=== PATIENT | female | born 1940 | race Caucasian/White ===

== ENCOUNTER 2016-04-14 21:16 | Emergency (ER) | payer MEDICARE, OTHER ==
[~2016-04-14] VITALS: Ht 165.1 cm; Wt 70.5 kg
[~2016-04-14 21:16] MED LIST: ALLO300T2 PO; AMLO10TA5 PO; ASPI-973 PO; ATOR40TA69 PO; CHOL10008 PO; CLOP75TA28 PO; ESOM20CA28 PO; ISOS60TA2 PO; LEVO100T97 PO; LOSA25TA21 PO; MELA1TAB11 PO; NAPR220C11 PO; NEBI2.5T5 PO; NITR0.4T SL; UBID100C16 PO
[2016-04-14 21:21] VITALS: BP 211/87; PULSE 67; RESP 16; O2SAT 96
[2016-04-14 21:58] VITALS: BP 187/72
[2016-04-14 23:27] VITALS: BP 159/78; PULSE 65; RESP 19
--- NOTE | 2016-04-14 23:36 | ED.REPORT ---
HPI-General Illness Date of Service Apr 14, 2016 ED Provider: Leon Villa MD History of Present Illness: 75yoF with PMH remarkable for HTN, hyperlipidemia, CAD with 5 stents placed, and hypothyroidism who presents with two day history of neck pain and stiffness. The patient denies trauma to her neck, and states she was just hanging around her house on bow[place]ursday. She states that the pain is described as a cramp made worse with head movements. The patient denies headaches, changes in vision, or pain in her jaw with chewing or talking. She states that she tried a heating pad for an hour without improvement but states that her neck feels much better with the ice applied in the Emergency Department. Nursing Notes Stated Complaint: STIFF NECK AND JAW Chief Complaint: General Complaint Allergies: Coded Allergies: crab (Verified Allergy, Unknown, 04/14/16) niacin (Unverified Adverse Reaction, Unknown, flushing, 04/14/16) Scheduled Allopurinol (Allopurinol) 300 Mg Tablet 300 MG PO DAILY Amlodipine (Norvasc) 10 Mg Tablet 10 MG PO DAILY Aspirin (Aspirin) 81 Mg Tablet 81 MG PO DAILY Atorvastatin Calcium (Atorvastatin Calcium) 40 Mg Tablet 80 MG PO HS Cholecalciferol (Vitamin D3) (Vitamin D3) 1,000 Unit Tab.chew 1,000 UNIT PO DAILY Clopidogrel (Clopidogrel) 75 Mg Tablet 75 MG PO DAILY Esomeprazole Magnesium (Nexium) 20 Mg Capsule.dr 20 MG PO BID Isosorbide MN ER (Isosorbide MN ER) 60 Mg Tab.er.24h 60 MG PO DAILY Levothyroxine (Synthroid) 100 Mcg Tablet 100 MCG PO DAILY Losartan Potassium (Losartan Potassium) 25 Mg Tablet 37.5 MG PO DAILY Nebivolol (Bystolic) 2.5 Mg Tablet 2.5 MG PO DAILY Ubidecarenone (Coq-10) 100 Mg Capsule 100 MG PO DAILY Scheduled PRN Methocarbamol (Methocarbamol) 500 Mg Tablet 500 MG PO QID PRN PRN For Spasm Nitroglycerin SL (Nitrostat) 0.4 Mg Tab.subl 0.4 MG SL Q5MIN PRN PRN For Chest Pain Miscellaneous Medications Melatonin/Pyridoxine (Melatonin 3 mg Tablet) 1 Each Tablet 1 EACH PO Naproxen Sodium (Aleve) 220 Mg Capsule 220 MG PO General Time Seen by MD: 22:33 Chief Complaint Other (neck stiffness and pain) Hx Obtained From: Patient, Spouse Arrived By: Walk-in Sudden in Onset?: No Onset Occurred: 2 days ago Symptom Duration: Since onset Location: : Neck Quality: Cramping Radiation: : Jaw Severity: Current: Moderate Severity: Maximum: Severe Pertinent Negative: Pt denies other symptoms Recent Healthcare: No recent doctor visit, No recent hospitalization Similar Sx Previous: No Past Medical History Past Medical History Reports: Coronary artery disease, Diabetes mellitus (type 2), Hyperlipidemia, Hypertension Reports: Thyroid disease (hypothyroidism) Past Surgical History Reports: Angioplasty (5 stents placed the last in March 2015) Smoking History Never Smoker Social History Lives on [facility] PCP Dr. Canas Alcohol Use: 1-3 per day (vodka) Drug Use: Denies drug use Other Social History: Good social support Occupation retired Ambulatory Status Independent Review of Systems Complete sys rev & neg: except as marked. Physical Exam Vital Signs Vital Signs Date Time Temp Pulse Resp B/P Pulse Ox O2 Delivery O2 Flow Rate FiO2 04/14/16 23:27 36.8 65 19 159/78 Room Air 04/14/16 21:58 187/72 04/14/16 21:21 36.6 67 16 211/87 96 Room Air General/Constitutional: Well-developed, Well-nourished Head / Eyes: Atraumatic, Normocephalic, PERRL ENT: Mucous membranes moist, Conjunctiva normal, No scleral icterus Neck: Supple, Non-tender, Full range of motion Respiratory: Breath sounds normal, Clear to auscultation, No respiratory distress Cardiovascular: Regular rate & rhythm, Heart sounds normal, Intact distal pulses Abdomen / GI: Soft, Non-tender, No guarding, No rebound, No distention Back: No CVA tenderness Lymphatic: No lymphadenopathy Extremities: Vascular intact, Neuro intact, No swelling, No tenderness Skin: Warm, Dry, No cyanosis Neurologic: Alert, Oriented, Nonfocal Psychiatric: Mood/affect normal, Behavior normal, Normal thought content Neck: Atraumatic, Supple, No swelling, No tracheal deviation Meningeal Signs / ROM: Positive: Rotation decreased L, Rotation decreased R Spasm noted in right sternocleidomastoid on passive rotation of the head Neurologic: Oriented X3, Speech NL, CN II - XII intact Focal Weakness: Negative: Lower extremity bilat, Upper extremity bilat Cerebellar Dysfunction: Negative: Dysdiadochokinesis Discharge & Departure Primary Impression: Muscle spasms of neck Disposition: Home Discharge Condition All VS Reviewed: Yes Condition: Stable Patient Instructions: Neck Strain Exercises (GEN), Spasmodic Torticollis (ED) Additional Instructions: You most likely have a neck muscle spasm. You have been given medication in the hospital for muscle spasm that causes sedation, so you should not drive home from the hospital. You will be given a course of muscle relaxants to take at home, please take these as directed. Please avoid any activity which causes pain. Be careful to avoid over exertion while on muscle relaxants as they can dull your pain perception. In several days you may try stretching your neck and a packet of exercises have been included, however begin stretches slowly to avoid re-injury. You may heat your neck throughout the day with recommendations for 20minute at a time three times per day. You may ice your neck again 20 minutes a day three times a day. You should avoid drinking on muscle relaxants as this can potentiate the sedation side effects. Do not operate a motor vehicle while taking muscle relaxants as your reaction time will be delayed. You should follow up with your PCP in 1 week to see that your neck is improving. Referrals: Naseem Canas MD (PCP) Attending Statement The patient was seen and examined together with Dr. Lee on 04/14/16 and I agree with the history, exam and plan as outlined in the note above. copies to: Nsaeem Canas MD, NICHOLAS K DO Apr 14, 2016 23:36 Leon Villa MD Apr 15, 2016 00:17
[2016-04-14] MEDS ORDERED: ROB500 PO (23:45)
[2016-04-15 00:19] VITALS: BP 131/79; PULSE 62; RESP 16; O2SAT 94
== END 2016-04-15 00:18 | disposition home or self-care (01) ==
LOC: SED 21:16
DX: M62.838 Other muscle spasm (principal); I11.9 Hypertensive heart disease without heart failure; E11.59 Type 2 diabetes mellitus with other circulatory complications; I25.10 Atherosclerotic heart disease of native coronary artery without angina pectoris; E78.5 Hyperlipidemia, unspecified; E03.9 Hypothyroidism, unspecified; Z95.5 Presence of coronary angioplasty implant and graft; Z79.82 Long term (current) use of aspirin; Z91.013 Allergy to seafood; Z88.8 Allergy status to other drugs, medicaments and biological substances
CPT/HCPCS: 93005; 96372; 99284; J2060